=== PATIENT | male | born 1985 | race Caucasian/White ===

== ENCOUNTER 2016-11-21 06:38 | Emergency (ER) | payer SELFPAY ==
[~2016-11-21] VITALS: Ht 182.9 cm; Wt 98.4 kg
[~2016-11-21 06:38] MED LIST: NOHOMEMEDS; PEN-VEE K,VEET500 MG PO; ULTRAM50 MG PO; VICODIN 5-3001 EACH PO
[2016-11-21 08:56] LABS: HEMATOCRIT 40.2 % (38.0-50.0); MCH 30.6 PG (29.0-34.0); MCHC 33.6 G/DL (30.0-36.0); MCV 91.2 FL (86-99); MEAN PLAT.VOLUME 10.3 uM^3 (9.0-12.4); PLATELET COUNT 298 K/uL (156-360); RBC DIS.WIDTH-CV 13.1 % (11.8-14.6); RBC DIS.WIDTH-SD 42.9 % (39-53); RED BLOOD COUNT 4.41 M/uL (4.00-5.50); WHITE BLOOD COUNT 10.5 K/uL (4.1-10.2)
[2016-11-21] MEDS ORDERED: PREDNISONE20 MG PO (09:14)
[2016-11-21] MEDS ORDERED: PROVENTIL HFA6.7 GM IH (09:14)
[2016-11-21 09:25] LABS: ANION GAP 7 MEQ/L (2-14); CHLORIDE 105 MEQ/L (99-109); POTASSIUM 4.1 MEQ/L (3.7-5.4); SAMPLE HEMOLYSIS CHECK 0; SAMPLE ICTERIC CHECK 0; SAMPLE LIPEMIA CHECK 0; SODIUM 140 MEQ/L (136-147)
[2016-11-21 09:30] LABS: GFR ESTIMATE (CALCULATED) > 59 mL/min/; GLUCOSE 127 mg/dL (70-99); UREA NITROGEN (BUN) 11 mg/dL (9-23)
[2016-11-21 09:35] LABS: TROP-I INTERPRETATION NEGATIVE; TROPONIN-I < 0.01 ng/mL (0.0-0.30)
[2016-11-21 10:11] VITALS: BP 121/67
== END 2016-11-21 10:11 | disposition home or self-care (01) ==
LOC: EME 06:38
PROVIDERS: Emergency Medicine
DX: J45.909 Unspecified asthma, uncomplicated (principal); F17.200 Nicotine dependence, unspecified, uncomplicated
CPT/HCPCS: 71020; 80048; 84484; 85027; 93005; 99281; 99284; J7512

== ENCOUNTER 2016-12-20 05:28 | Emergency (ER) | payer SELFPAY ==
[~2016-12-20] VITALS: Ht 182.9 cm; Wt 94.7 kg
[~2016-12-20 05:28] MED LIST changes: +PREDNISONE20 MG PO; +PROVENTIL HFA6.7 GM IH
[2016-12-20 06:06] LABS: HEMATOCRIT 46.2 % (38.0-50.0); MCHC 32.9 G/DL (30.0-36.0); MCV 91.1 FL (86-99); MEAN PLAT.VOLUME 9.9 uM^3 (9.0-12.4); PLATELET COUNT 387 K/uL (156-360); RBC DIS.WIDTH-SD 42.8 % (39-53); RED BLOOD COUNT 5.07 M/uL (4.00-5.50); WHITE BLOOD COUNT 8.5 K/uL (4.1-10.2)
[2016-12-20 06:17] LABS: CHLORIDE 100 mEq/L (99-109); POTASSIUM 3.7 mEq/L (3.7-5.4); SODIUM 142 mEq/L (136-147)
[2016-12-20 06:19] LABS: GLUCOSE 90 mg/dL (70-99)
[2016-12-20 06:20] LABS: ANION GAP 16 MEQ/L (2-14)
[2016-12-20 06:23] LABS: GFR ESTIMATE (CALCULATED) > 59 mL/min/; UREA NITROGEN (BUN) 15 mg/dL (9-23)
[2016-12-20 07:38] LABS: TROP-I INTERPRETATION NEGATIVE; TROPONIN-I < 0.01 ng/mL (0.0-0.30)
[2016-12-20] MEDS ORDERED: PREDNISONE50 MG PO (07:47)
[2016-12-20] MEDS ORDERED: VENTOLIN HFA18 GM IH (07:52)
[2016-12-20 07:59] VITALS: BP 121/67
[2016-12-21] MEDS ORDERED: XANAX0.25 MG PO (05:41)
== END 2016-12-20 08:00 | disposition home or self-care (01) ==
LOC: EME 05:28
PROVIDERS: Emergency Medicine
DX: J44.1 Chronic obstructive pulmonary disease with (acute) exacerbation (principal); R07.9 Chest pain, unspecified; F17.200 Nicotine dependence, unspecified, uncomplicated
CPT/HCPCS: 71020; 80048; 84484; 85027; 93005; 94640; 99281; 99283; J7512

== ENCOUNTER 2016-12-21 03:07 | Emergency (ER) | payer SELFPAY ==
[~2016-12-21] VITALS: Ht 182.9 cm; Wt 94.5 kg
[~2016-12-21 03:07] MED LIST changes: +PREDNISONE50 MG PO; +VENTOLIN HFA18 GM IH
[2016-12-21 05:08] LABS: EOSINOPHIL (%) 0.4 % (0-5); EOSINOPHIL COUNT 0.1 K/uL (0-0.3); HEMATOCRIT 40.4 % (38.0-50.0); IMMATURE GRANULOCYTE (%) 0.4 % (0.0-0.7); IMMATURE GRANULOCYTE COUNT 0.1 K/uL; INSTRUMENT ABS NEUTROPHIL CT 9.4 K/uL; LYMPHOCYTE COUNT 2.9 K/uL (1.0-2.8); MCH 30.3 PG (29.0-34.0); MCHC 33.7 G/DL (30.0-36.0); MEAN PLAT.VOLUME 10.1 uM^3 (9.0-12.4); MONOCYTE (%) 7.8 % (3-12); MONOCYTE COUNT 1.1 K/uL (0-0.8); NEUTROPHIL (%) 69.8 % (45-76); NEUTROPHIL COUNT 9.4 K/uL (1.8-6.4); PLATELET COUNT 346 K/uL (156-360); RBC DIS.WIDTH-SD 42.5 % (39-53); RED BLOOD COUNT 4.49 M/uL (4.00-5.50); WHITE BLOOD COUNT 13.5 K/uL (4.1-10.2)
[2016-12-21 05:15] LABS: CHLORIDE 102 mEq/L (99-109); POTASSIUM 3.7 mEq/L (3.7-5.4); SODIUM 138 mEq/L (136-147)
[2016-12-21 05:18] LABS: ANION GAP 13 MEQ/L (2-14); GLUCOSE 141 mg/dL (70-99)
[2016-12-21 05:20] LABS: D-DIMER ELISA 0.16 mg/L FEU (< 0.57)
[2016-12-21 05:21] LABS: GFR ESTIMATE (CALCULATED) > 59 mL/min/
[2016-12-21 05:22] LABS: UREA NITROGEN (BUN) 18 mg/dL (9-23)
[2016-12-21 05:28] LABS: TROP-I INTERPRETATION NEGATIVE; TROPONIN-I < 0.01 ng/mL (0.0-0.30)
[2016-12-21] MEDS ORDERED: XANAX0.25 MG PO (05:41)
[2016-12-21 06:06] VITALS: BP 129/81
== END 2016-12-21 06:07 | disposition home or self-care (01) ==
LOC: EME 03:07
PROVIDERS: Emergency Medicine
DX: F41.1 Generalized anxiety disorder (principal); R06.00 Dyspnea, unspecified; F17.200 Nicotine dependence, unspecified, uncomplicated
CPT/HCPCS: 80048; 83880; 84484; 85025; 85379; 93005; 99281; 99284

== ENCOUNTER 2017-01-06 04:56 | Emergency (ER) | payer SELFPAY ==
[~2017-01-06] VITALS: Ht 182.9 cm; Wt 95.3 kg
[~2017-01-06 04:56] MED LIST changes: +XANAX0.25 MG PO
[2017-01-06 05:41] LABS: CHLORIDE 107 mEq/L (99-109); SODIUM 143 mEq/L (136-147)
[2017-01-06 05:42] LABS: GLUCOSE 88 mg/dL (70-99)
[2017-01-06 05:43] LABS: HEMATOCRIT 44.1 % (38.0-50.0); MCH 30.3 PG (29.0-34.0); MCHC 32.9 G/DL (30.0-36.0); MCV 92.1 FL (86-99); MEAN PLAT.VOLUME 10.8 uM^3 (9.0-12.4); PLATELET COUNT 297 K/uL (156-360); RBC DIS.WIDTH-CV 13.3 % (11.8-14.6); RBC DIS.WIDTH-SD 45.1 % (39-53); RED BLOOD COUNT 4.79 M/uL (4.00-5.50); WHITE BLOOD COUNT 10.7 K/uL (4.1-10.2)
[2017-01-06 05:44] LABS: ANION GAP 13 MEQ/L (2-14)
[2017-01-06 05:46] LABS: GFR ESTIMATE (CALCULATED) > 59 mL/min/
[2017-01-06 05:47] LABS: UREA NITROGEN (BUN) 11 mg/dL (9-23)
[2017-01-06 05:54] LABS: TROP-I INTERPRETATION NEGATIVE; TROPONIN-I < 0.01 ng/mL (0.0-0.30)
[2017-01-06 06:55] VITALS: BP 117/65
== END 2017-01-06 06:56 | disposition home or self-care (01) ==
LOC: EME 04:56
PROVIDERS: Emergency Medicine
DX: F41.9 Anxiety disorder, unspecified (principal); R07.9 Chest pain, unspecified; J45.909 Unspecified asthma, uncomplicated; F17.200 Nicotine dependence, unspecified, uncomplicated
CPT/HCPCS: 71020; 80048; 84484; 85027; 93005; 99281; 99283